=== PATIENT | female | born 1965 | race Caucasian/White ===

== ENCOUNTER 2018-08-24 18:18 | Emergency (ER) | payer BC ==
[~2018-08-24] VITALS: Ht 167.6 cm; Wt 61.2 kg
[~2018-08-24 18:18] MED LIST: CALCA500CH PO; CHOL10002; CYAN1000 PO
[2018-08-24 18:53] LABS: BASOPHILS ABSOLUTE AUTO 0.02 K/mm3 (0.00-0.23); BASOPHILS PERCENT AUTO 0 % (0-2); EOSINOPHILS ABSOLUTE AUTO 0.02 K/mm3 (0.00-0.68); EOSINOPHILS PERCENT AUTO 0 % (0-6); Hematocrit 38.2 % (33.0-51.0); Hemoglobin 12.4 g/dL (11.5-16.0); IMMATURE GRAN ABSOLUTE AUTO 0.07 K/mm3 (0.00-0.10); IMMATURE GRAN PERCENT AUTO 1 % (0-1); LYMPHOCYTES ABSOLUTE AUTO 0.35 K/mm3 (0.84-5.20); LYMPHOCYTES PERCENT AUTO 3 % (21-46); MONOCYTES ABSOLUTE AUTO 0.43 K/mm3 (0.16-1.47); MONOCYTES PERCENT AUTO 3 % (4-13); Mean Corpuscular HGB 30.6 pg (26.0-34.0); Mean Corpuscular HGB Conc 32.5 g/dL (31.5-36.5); Mean Corpuscular Volume 94 fL (80-100); NEUTROPHILS ABSOLUTE AUTO 13.06 K/mm3 (1.96-9.15); NEUTROPHILS PERCENT AUTO 94 % (41-73); Platelet Count 248 K/mm3 (150-400); RDW Coefficient Variation 11.9 % (11.7-14.2); RDW Standard Deviation 41.1 fL (35.1-46.3); Red Blood Cell Count 4.05 M/mm3 (3.80-5.20); White Blood Cell Count 13.95 K/mm3 (4.00-11.30)
[2018-08-24 19:23] LABS: Alanine Aminotransfer (ALT/SGP 71 U/L (12-78); Albumin/Globulin Ratio 1.4 (0.8-1.8); Alk Phos 67 U/L (50-136); Anion Gap 8 mmol/L (6-16); Aspartate Aminotrans (AST/SGOT 34 U/L (12-37); Blood Urea Nitrogen 20 mg/dL (8-24); Bun/Creatinine Ratio 29.1 (12.0-20.0); CO2, Blood 24 mmol/L (21-32); Calcium, Blood 9.1 mg/dL (8.5-10.1); Chloride, Blood 107 mmol/L (98-108); Creatinine, Blood 0.69 mg/dL (0.40-1.00); Globulin, Blood 2.9 g/dL (2.2-4.0); Glomerular Filtration Rate >60 (60-); Glucose, Blood 134 mg/dL (70-99); Potassium, Blood 3.3 mmol/L (3.5-5.5); Sodium, Blood 139 mmol/L (136-145); Total Protein, Blood 6.9 g/dL (6.4-8.2); Troponin I <0.015 ng/mL (0.000-0.040)
[2018-08-24 19:23] LABS: Source, Urine Clean Catch
[2018-08-24 19:27] LABS: Blood, Urine 2+ (Neg); Glucose Qualitative, Urine Neg (Neg); Ketones, Urine Neg (Neg); Leukocyte Esterase, Urine Neg (Neg); Nitrite, Urine Pos (Neg); Protein, Urine 3+ (Neg); Specific Gravity, Urine 1.025 (1.003-1.022); Urobilinogen, Urine 3+ (Normal)
[2018-08-24 19:37] LABS: Bilirubin, Urine 3+ (Neg)
[2018-08-24 19:38] LABS: Appearance, Urine Cloudy (Clear); Color, Urine Orange (P-Yellow)
[2018-08-24 19:41] LABS: Bacteria Mod /hpf; Squamous Epithelial Cells Few /hpf (Few)
== END 2018-08-25 01:00 | disposition home or self-care (01) ==
LOC: ER 18:18
PROVIDERS: Physician Assistant
DX: N39.0 Urinary tract infection, site not specified (principal); R51 Headache; Z79.899 Other long term (current) drug therapy
CPT/HCPCS: 36415; 71046; 80053; 81001; 84484; 85025; 87077; 87086; 87186; 93005; 93010; 96361; 96374; 96375; 99284-25; J1100; J1885; J2405; J2765; J3010

== ENCOUNTER → 2020-08-21 | Outpatient (CLI) | payer BC ==
[~2020-08-21] MED LIST changes: +METR250; +OMEP20ER; +TETR250
== END | disposition home or self-care (01) ==
LOC: LAB 15:01 → LAB SHORT 15:01
DX: A04.8 Other specified bacterial intestinal infections (principal)
CPT/HCPCS: 87338

== ENCOUNTER 2020-09-05 11:46 | Day surgery (SDC) | payer BC ==
[~2020-09-05] VITALS: Ht 165.1 cm; Wt 64.4 kg
[~2020-09-05 11:46] MED LIST changes: -METR250; -OMEP20ER; -TETR250
[2020-09-05] MEDS ORDERED: OMEP20ER ×2 (12:06→12:07)
[2020-09-05] MEDS ORDERED: TETR250 (12:07)
[2020-09-05] MEDS ORDERED: METR250 (12:07)
--- NOTE | 2020-09-05 12:14 | NUR ---
09/05/20 Marco4 Manuela Beck 1 TRY RIGHT HAND VALVE
== END 2020-09-05 13:52 | disposition home or self-care (01) ==
LOC: ORSCSDS 11:46
PROVIDERS: Internal Medicine Gastroenterology
PROC: 0D757ZZ Dilation of Esophagus, Via Natural or Artificial Opening (ICD-10-PCS; principal; 2020-09-05 13:15)
PROC: 0DB68ZX Excision of Stomach, Via Natural or Artificial Opening Endoscopic, Diagnostic (ICD-10-PCS; principal; 2020-09-05 13:15)
PROC: 0DB58ZX Excision of Esophagus, Via Natural or Artificial Opening Endoscopic, Diagnostic (ICD-10-PCS; principal; 2020-09-05 13:15)
DX: R13.10 Dysphagia, unspecified (principal); K21.9 Gastro-esophageal reflux disease without esophagitis; R12 Heartburn; Z79.899 Other long term (current) drug therapy
CPT/HCPCS: 88305; 88342; J2405; J2704; J7120

== ENCOUNTER → 2020-10-24 | Outpatient (CLI) | payer BC ==
[~2020-10-24] MED LIST changes: +METR250; +OMEP20ER; +TETR250
== END ==
LOC: LAB SHORT 10:17 → LAB 10:17
DX: A04.8 Other specified bacterial intestinal infections (principal)
CPT/HCPCS: 87338

== ENCOUNTER → 2021-03-01 | Outpatient (CLI) | payer BC | END | disposition home or self-care (01) | LOC: LAB SHORT 12:29 → LAB 12:29 | DX: Z09 Encounter for follow-up examination after completed treatment for conditions other than malignant neoplasm (principal); Z86.19 Personal history of other infectious and parasitic diseases | CPT/HCPCS: 87338 ==

== ENCOUNTER → 2021-10-06 | Outpatient (CLI) | payer BC ==
[2021-10-07 09:39] LABS: C DIFFICILE DNA NEGATIVE (Negative)
== END | disposition home or self-care (01) ==
LOC: LAB SHORT 09:05 → LAB 09:05
PROVIDERS: Student in an Organized Health Care Education/Training Program
DX: R19.7 Diarrhea, unspecified (principal)
CPT/HCPCS: 87493

== ENCOUNTER → 2021-10-24 | Outpatient (CLI) | payer BC ==
[2021-10-24 14:33] LABS: Campylobacter Sp Not Detected (NOT DETECT)
[2021-10-24 14:34] LABS: Adenovirus F 40/41 Not Detected (NOT DETECT); Astrovirus Not Detected (NOT DETECT); Cryptosporidium Not Detected (NOT DETECT); Cyclospora Cayetanensis Not Detected (NOT DETECT); E. Coli O157 Not Detected (NOT DETECT); Entamoeba Histolytica Not Detected (NOT DETECT); Enteroaggregative E. coli-EAEC Not Detected (NOT DETECT); Enteropathogenic E. coli-EPEC Not Detected (NOT DETECT); Enterotoxigenic E. coli-ETEC Not Detected (NOT DETECT); Giardia Lamblia Not Detected (NOT DETECT); Norovirus GI/GII Not Detected (NOT DETECT); Plesiomonas Shigelloides Not Detected (NOT DETECT); Rotavirus A Not Detected (NOT DETECT); Salmonella Sp Not Detected (NOT DETECT); Sapovirus Not Detected (NOT DETECT); Shiga Toxin-prod E. coli-STEC Not Detected (NOT DETECT); Shigella/Enteroin E. coli-EIEC Not Detected (NOT DETECT); Vibrio Cholerae Not Detected (NOT DETECT); Vibrio Sp Not Detected (NOT DETECT); Yersinia Enterocolitica Not Detected (NOT DETECT)
== END ==
LOC: LAB SHORT 11:31 → LAB 11:31
PROVIDERS: Nurse Practitioner Family
DX: R19.7 Diarrhea, unspecified (principal)
CPT/HCPCS: 87324; 87507

== ENCOUNTER → 2024-09-27 | Outpatient (CLI) | payer BC | LOC: LAB SHORT 07:59 → LAB 07:59 | DX: B35.1 Tinea unguium (principal); L60.2 Onychogryphosis | CPT/HCPCS: 88305; 88312 ==

== ENCOUNTER → 2025-01-31 | Outpatient (CLI) | payer BC | LOC: LAB SHORT 07:45 → LAB 07:45 | DX: D48.5 Neoplasm of uncertain behavior of skin (principal) | CPT/HCPCS: 88342 ==

== ENCOUNTER → 2025-06-15 | Outpatient (CLI) | payer BC | LOC: LAB 13:36 → LAB SHORT 13:36 → PLD 13:36 | DX: D48.5 Neoplasm of uncertain behavior of skin (principal) | CPT/HCPCS: 88342 ==